=== PATIENT | female | born 1985 | race African-American/Black ===

== ENCOUNTER 2016-12-29 12:12 | Emergency (ER) | payer OTHER ==
[~2016-12-29] VITALS: Ht 157.5 cm; Wt 74.0 kg
[~2016-12-29 12:12] MED LIST: CORTIZONE-10 PL57 GM TP; NOHOMEMEDS; TYLENOL WITH C1 EACH PO
[2016-12-29] MEDS ORDERED: PEN-VEE K,VEET500 MG PO (13:30)
[2016-12-29] MEDS ORDERED: NORCO 5/3251 TABLET PO (13:30)
[2016-12-29 13:52] VITALS: BP 135/80
== END 2016-12-29 13:54 | disposition home or self-care (01) ==
LOC: EME 12:12
DX: K02.9 Dental caries, unspecified (principal)
CPT/HCPCS: 87651 90; 99281; 99283